=== PATIENT | male | born 1990 | race African-American/Black ===

== ENCOUNTER 2019-02-18 19:36 | Emergency (ER) | payer OTHER ==
[~2019-02-18] VITALS: Ht 172.7 cm; Wt 102.1 kg
[2019-02-18 20:46] LABS: PLATELET COUNT 297 K/uL (142-355)
[2019-02-18 20:53] LABS: POTASSIUM 3.9 mmol/L (3.6-5.2)
[2019-02-18 22:10] VITALS: BP 158/94; TEMP 98.5
== END 2019-02-18 22:10 | disposition home or self-care (01) ==
LOC: ED 19:36
PROVIDERS: Internal Medicine
DX: L73.9 Follicular disorder, unspecified (principal); L29.9 Pruritus, unspecified; R21 Rash and other nonspecific skin eruption
CPT/HCPCS: 36415; 80053; 81000; 85027; 85651; 86140; 99283